=== PATIENT | male | born 1965 | race Two or more races ===

== ENCOUNTER 2024-03-28 07:57 | Emergency (ER) | payer MEDICARE ==
[2024-03-28 08:11] VITALS: BP 144/77; PULSE 66; RESP 18; TEMP 97.8; BMI 28.1
[2024-03-28] MEDS: ACETAMINOPHEN 1000 MG/100 ML BAG IVPB ONE (09:30)
[2024-03-28] MEDS ORDERED: ACETAMINOPHEN INJECTION 100 ML ONE (09:30)
[2024-03-28 09:35] LABS: BASO % 0.4 % (0-2.0); EOS % 1.6 % (0-4.5); HEMATOCRIT 40.3 % (35.4-49); HEMOGLOBIN 13.9 GM/dL (11.7-16.9); LYMPH % 26.1 % (8-40); MCH 31.5 pg (25.7-33.7); MCHC 34.5 g/dl (32.0-35.9); MEAN CELL VOLUME 91.3 fl (80-96); MEAN PLT VOLUME 7.7 fl (7.5-11.1); MONO % 6.4 % (3.8-10.2); NEUT % 65.5 % (42.8-82.8); PLATELET COUNT 255 10^3/uL (134-434); RBC 4.41 M/mm3 (4.00-5.60); RDW 13.2 % (11.9-15.9); WHITE BLOOD COUNT 5.9 K/mm3 (4.0-10.0)
[2024-03-28 09:53] LABS: POTASSIUM 4.4 mmol/L (3.5-5.1)
[2024-03-28 09:55] LABS: ALBUMIN 4.8 g/dl (3.4-5.0); BLOOD UREA NITROGEN 14.7 mg/dL (7-18); CALCIUM 9.5 mg/dL (8.5-10.1); MAGNESIUM 2.1 mg/dL (1.8-2.4)
[2024-03-28 09:58] LABS: CREATININE 1.1 mg/dL (0.55-1.3)
[2024-03-28 10:00] LABS: BILIRUBIN,TOTAL 0.7 mg/dL (0.2-1); TOT PROT 7.7 g/dl (6.4-8.2)
[2024-03-28] MEDS ORDERED: LIDOCAINE 5% TOPICAL PATCH ONE (10:54)
[2024-03-28] MEDS: LIDOCAINE 5% TOPICAL PATCH TP ONE (11:01)
[2024-03-28 13:11] LABS: HIV INTERPRETATION NEGATIVE (NEGATIVE)
[2024-03-28] MEDS ORDERED: LIDOCAINE PATCH REMOVAL MC SCH (22:00)
== END 2024-03-28 11:44 | disposition home or self-care (01) ==
LOC: JER 07:57
PROC: 3E033NZ Introduction of Analgesics, Hypnotics, Sedatives into Peripheral Vein, Percutaneous Approach (ICD-10-PCS; principal; 2024-03-28)
DX: R07.89 Other chest pain (principal); M54.6 Pain in thoracic spine; G89.29 Other chronic pain; Z20.822 Contact with and (suspected) exposure to COVID-19
CPT/HCPCS: 0241U-QW; 36415; 71046-TC-FY; 80053; 83735; 84484; 85025; 86803; 87389; 93005; 93010; 96374; 99285-25; J0131

== ENCOUNTER 2024-04-09 11:25 | Emergency (ER) | payer MEDICARE ==
[2024-04-09 11:31] VITALS: TEMP 97.9; BMI 27.3
[2024-04-09 12:08] VITALS: PULSE 77
[2024-04-09 12:10] VITALS: BP 164/97; RESP 22
[2024-04-09] MEDS ORDERED: KETOROLAC TROMETHAMINE 15 MG/ML VIAL ONE (12:22)
[2024-04-09] MEDS: KETOROLAC TROMETHAMINE 15 MG/ML VIAL IVPUSH ONE (12:35)
[2024-04-09 12:37] LABS: BASO % 0.6 % (0-2.0); EOS % 1.6 % (0-4.5); HEMATOCRIT 39.4 % (35.4-49); HEMOGLOBIN 13.4 GM/dL (11.7-16.9); LYMPH % 31.4 % (8-40); MCH 31.4 pg (25.7-33.7); MEAN CELL VOLUME 92.2 fl (80-96); MEAN PLT VOLUME 7.5 fl (7.5-11.1); MONO % 7.7 % (3.8-10.2); NEUT % 58.7 % (42.8-82.8); PLATELET COUNT 265 10^3/uL (134-434); RBC 4.28 M/mm3 (4.00-5.60); RDW 12.6 % (11.9-15.9); WHITE BLOOD COUNT 5.6 K/mm3 (4.0-10.0)
[2024-04-09 12:52] LABS: ACTIVATED PTT 32.8 SECONDS (25.2-36.5); INR 0.97 (0.83-1.09); PROTHROMBIN TIME (PATIENT) 11.2 SEC (9.7-13.0)
[2024-04-09 12:56] LABS: POTASSIUM 4.2 mmol/L (3.5-5.1)
[2024-04-09 12:59] LABS: BLOOD UREA NITROGEN 9.1 mg/dL (7-18); CALCIUM 9.5 mg/dL (8.5-10.1); MAGNESIUM 2.1 mg/dL (1.8-2.4)
[2024-04-09 13:02] LABS: CREATININE 0.9 mg/dL (0.55-1.3)
[2024-04-09 13:04] LABS: BILIRUBIN,TOTAL 0.6 mg/dL (0.2-1); TOT PROT 7.2 g/dl (6.4-8.2)
[2024-04-09] MEDS: ACETAMINOPHEN 1000 MG/100 ML BAG IVPB ONE (14:40)
[2024-04-09] MEDS ORDERED: ACETAMINOPHEN INJECTION 100 ML ONE (14:49)
== END 2024-04-09 16:16 | disposition home or self-care (01) ==
LOC: JER 11:25
PROC: 3E033NZ Introduction of Analgesics, Hypnotics, Sedatives into Peripheral Vein, Percutaneous Approach (ICD-10-PCS; principal; 2024-04-09)
PROC: 3E0333Z Introduction of Anti-inflammatory into Peripheral Vein, Percutaneous Approach (ICD-10-PCS; 2024-04-09)
DX: R07.9 Chest pain, unspecified (principal); M54.9 Dorsalgia, unspecified; G89.29 Other chronic pain
CPT/HCPCS: 36415; 71045-TC-FY; 80053; 83735; 84484; 85025; 85610; 85730; 93005; 93010; 96374; 96375; 99285-25; J0131